=== PATIENT | female | born 1990 | race Hispanic/Latino ===

== ENCOUNTER → 2018-03-28 | Day surgery (SDC) | payer OTHER ==
[~2018-03-28] MED LIST: Bupivacaine/Epinephrine 0.25% 30 ML VIAL ONE; Fentanyl 100 MCG/2 ML VIAL ONE; HYDROcodone/Acetaminophen 5/325 mg Tablet ONE; Lidocaine 1% PF 5 ML VIAL ONE; Ondansetron HCl/PF 4 MG/2 ML Vial ONE; PROPOFOL 200 MG/20 ML VIAL ONE; Succinylcholine Chloride 20 MG/ML 10 ml SYRINGE FS ONE; ePHEDrine/0.9% NaCl/PF SYRINGE 50 mg/10 ml ONE
--- NOTE | 2018-03-28 20:33 | OP ---
DATE OF PROCEDURE: 03/28/2018 PREOPERATIVE DIAGNOSIS: Acute appendicitis. POSTOPERATIVE DIAGNOSIS: Acute appendicitis. PROCEDURE: Laparoscopic appendectomy. SURGEON: Durga Sousa M.D ANESTHESIA: General. ESTIMATED BLOOD LOSS: __minimal___ COMPLICATIONS: None. SPECIMEN: Appendix. FINDINGS: Appendicitis. TECHNIQUE: The patient was taken to the operating room and placed supine on the table. After general anesthetic was obtained, a Farias was placed. The abdomen was prepped and draped in a sterile fashion. Curved incision was made above the umbilicus. Cautery was used to dissect down to and score the fascia. Abdominal cavity was entered bluntly using a Mona clamp. Holding stitch of PDS was placed on each side of the fascia. Carlos Alberto trocar was placed after pneumoperitoneum was obtained. A suprapubic 5 mm port and left lower quadrant 5 -mm port placed under direct visualization. The cecum was rolled over to reveal acute appendicitis. A small window was made at the base of the appendix and mesoappendix. Laparoscopic stapler fired across the base of the appendix. A vascular reload fired across the mesoappendix. Appendix placed in the endocatch bag and brought out through the Carlos Alberto. There was no bleeding on the staple line. The abdomen and pelvis irrigated using sterile solution. No damage to any intraabdominal structures. All port sites infiltrated using local anesthetic. All ports are removed under camera visualization without bleeding. Pneumoperitoneum was let down. PDS was used to close the fascial defect below the umbilicus. All incisions were irrigated and closed using 4-0 Monocryl and Dermabond. The patient en route to recovery in stable condition. All instrument counts, needle counts, lap counts were correct. MTDD
--- NOTE | 2018-03-29 00:54 | HP ---
CHIEF COMPLAINT: Lower abdominal pain. HISTORY OF PRESENT ILLNESS: This is a 27-year-old female with a history of pain in the right lower q uadrant, described as sharp, does not radiate, associated with nausea, no vomiting, associated with a norexia, but no diarrhea or constipation. She has never had this pain before. No history of chronic inflammatory bowel disease or Crohn's disease. CT scan at [facility] reveals appendicitis . PAST MEDICAL HISTORY: Negative. PAST SURGICAL HISTORY: Tubal. MEDICINES: None. ALLERGIES: No known drug allergies. SOCIAL HISTORY: No smoking, alcohol or other drugs. REVIEW OF SYSTEMS: Ten system review of systems is otherwise negative unless described above. PHYSICAL EXAMINATION: HEENT: Sclerae are anicteric. Oropharynx clear. NECK: No lymphadenopathy. LUNGS: Clear. HEART: Regular rate and rhythm. ABDOMEN: Soft, tender right lower quadrant, localized guarding, no rebound, no abdominal hernias. EXTREMITIES: No ischemia or edema to extremities. CT scan reveals acute appendicitis. ASSESSMENT: Acute appendicitis. PLAN: Laparoscopic appendectomy. Risks, benefits, alternatives discussed. She gives consent. We w ill do this today.
== END ==
LOC: SDC 17:13
PROVIDERS: ATTEND Surgery
PROC: 0DTJ4ZZ Resection of Appendix, Percutaneous Endoscopic Approach (ICD-10-PCS; principal; 2018-03-28)
DX: K35.80 Unspecified acute appendicitis (principal)
CPT/HCPCS: 88304; 96374; 96375; 96376; J2405; J3010

== ENCOUNTER 2020-04-15 08:10 | Outpatient (CLI) | payer OTHER ==
[2020-04-15 16:19] LABS: SARS-CoV-2 MS2 Positive; SARS-CoV-2 N Gene Negative; SARS-CoV-2 S Gene Negative; SARS-CoV-2 by NAA Not Detected (NotDetected); SARS-CoV-2 orf1ab Negative
== END 2020-04-15 08:11 | disposition home or self-care (01) ==
LOC: LABBT 08:10
PROVIDERS: ATTEND Obstetrics & Gynecology
DX: Z20.828 Contact with and (suspected) exposure to other viral communicable diseases (principal)
CPT/HCPCS: 87635; U0003

== ENCOUNTER 2020-04-18 12:00 | Inpatient (IN) | payer OTHER ==
[~2020-04-18 12:00] MED LIST changes: +Bicitra 30 ML UDCUP PO SCH; -Bupivacaine/Epinephrine 0.25% 30 ML VIAL ONE; +CEFAZOLIN 2 GM in Premix Bag 1 BAG IVPB SCH; -Fentanyl 100 MCG/2 ML VIAL ONE; -HYDROcodone/Acetaminophen 5/325 mg Tablet ONE; -Lidocaine 1% PF 5 ML VIAL ONE; -Ondansetron HCl/PF 4 MG/2 ML Vial ONE; +Ondansetron PF 4 MG/2 ML Vial IVP PRN; -PROPOFOL 200 MG/20 ML VIAL ONE; +Promethazine HCl 25 MG/ML VIAL IM PRN; -Succinylcholine Chloride 20 MG/ML 10 ml SYRINGE FS ONE; -ePHEDrine/0.9% NaCl/PF SYRINGE 50 mg/10 ml ONE; +hydrALAZINE 20 MG/ML VIAL SLOW IVP PRN
[2020-04-18 15:19] VITALS: BMI 40.8
[2020-04-18] MEDS: Lactated Ringer's 1,000 ML IV SCH (15:30)
[2020-04-18 16:04] LABS: Hemoglobin 12.4 g/dL (12.0-16.0); Mean Corpuscular HGB CONC 35.2 g/dL (32.0-36.0); Mean Corpuscular Hemoglobin 30.5 pg (27.0-31.0); Mean Corpuscular Volume 86.8 fL (78.0-98.0); Mean Platelet Volume 10.7 fL (7.4-10.4); Platelet Count 187 thou/uL (130-400); RBC Distribution Width 12.2 % (11.5-14.5); Red Blood Cell (RBC) Count 4.08 mill/uL (4.20-5.40); White Blood Cell (WBC) Count 12.3 thou/uL (4.8-10.8)
[2020-04-18 16:38] LABS: HBSAg Index 0.26 S/CO (0-0.99); Hep B Surf Ag Non-Reactive S/CO (NonReactive); Syphilis Antibody Nonreactive (Nonreactive); Syphilis Antibody Index 0.03 S/CO (<1.00 Non-Reactive)
[2020-04-18] MEDS ORDERED: Oxytocin 10 UNITS/ML VIAL ONE ×2 (17:18→19:29)
[2020-04-18] MEDS ORDERED: PHENYLEPHRINE-NS 100 MCG/ML 10 ML SYRINGE ONE (17:19)
[2020-04-18] MEDS ORDERED: Ondansetron PF 4 MG/2 ML Vial ONE (17:19)
[2020-04-18] MEDS ORDERED: Ketorolac Tromethamine 30 MG/ML VIAL ONE (17:19)
[2020-04-18] MEDS ORDERED: ePHEDrine 50 MG/ML VIAL ONE (17:19)
[2020-04-18] MEDS ORDERED: Morphine PF 10 MG/10 ML VIAL ONE (17:20)
[2020-04-18] MEDS ORDERED: Dexamethasone 4 mg/ml Vial ONE ×2 (18:53→19:05)
[2020-04-18] MEDS ORDERED: diphenhydrAMINE 50 MG/ML VIAL ONE (19:04)
[2020-04-18] MEDS ORDERED: Naloxone HCl 0.4 mg/ml Vial IVP PRN ×2 (19:38)
[2020-04-18] MEDS ORDERED: diphenhydrAMINE 50 MG/ML VIAL IVP PRN (19:38)
[2020-04-18] MEDS ORDERED: Promethazine HCl 25 MG SUPP PR PRN (19:38)
[2020-04-18] MEDS ORDERED: Promethazine HCl 25 MG/ML VIAL IM PRN ×2 (19:38→21:35)
[2020-04-18] MEDS ORDERED: Ondansetron HCl/PF 4 MG/2 ML Vial IVP PRN (19:38)
[2020-04-18] MEDS ORDERED: HYDROmorphone 2 MG/ML VIAL SLOW IVP PRN (19:38)
[2020-04-18] MEDS ORDERED: L&D-Morphine 4 MG/ML VIAL SLOW IVP PRN (19:38)
[2020-04-18] MEDS ORDERED: Meperidine HCl/PF 25 MG/ML VIAL SLOW IVP PRN (19:38)
[2020-04-18] MEDS ORDERED: Ondansetron PF 4 MG/2 ML Vial IVP PRN ×2 (19:38→21:35)
[2020-04-18] MEDS ORDERED: Naloxone HCl 0.4 mg/ml Vial IV PRN (19:38)
[2020-04-18] MEDS ORDERED: Communication Order-Pharmacy FS SCH (19:45)
[2020-04-18] MEDS ORDERED: Methylergonovine 0.2 MG/ML VIAL IM PRN (21:35)
[2020-04-18] MEDS ORDERED: Bisacodyl 10 MG SUPP PR PRN (21:35)
[2020-04-18] MEDS ORDERED: Simethicone Chewable 80 MG TAB PO PRN (21:35)
[2020-04-18] MEDS ORDERED: Misoprostol 200 MCG TAB PR PRN (21:35)
[2020-04-18] MEDS ORDERED: hydrALAZINE 20 MG/ML VIAL SLOW IVP PRN (21:35)
[2020-04-18] MEDS ORDERED: Zolpidem Tartrate 5 MG TAB PO PRN (21:35)
[2020-04-18] MEDS ORDERED: Lanolin Ointment 7 GM TUBE TOP PRN (21:35)
[2020-04-18] MEDS ORDERED: NS / Oxytocin 40 units/1000ml 1,000 ML IV SCH (21:35)
[2020-04-18] MEDS ORDERED: Morphine 2 MG/ML VIAL SLOW IVP PRN (23:27)
[2020-04-19 06:15] LABS: Hemoglobin 10.9 g/dL (12.0-16.0); Mean Corpuscular HGB CONC 34.3 g/dL (32.0-36.0); Mean Corpuscular Hemoglobin 30.4 pg (27.0-31.0); Mean Corpuscular Volume 88.7 fL (78.0-98.0); Mean Platelet Volume 10.2 fL (7.4-10.4); Platelet Count 159 thou/uL (130-400); RBC Distribution Width 11.9 % (11.5-14.5); Red Blood Cell (RBC) Count 3.57 mill/uL (4.20-5.40); White Blood Cell (WBC) Count 19.5 thou/uL (4.8-10.8)
[2020-04-19] MEDS ORDERED: HYDROcodone/Acetaminophen 5/325 mg Tablet PO PRN ×2 (07:45)
[2020-04-19] MEDS ORDERED: Varicella virus, LIVE 0.5 ML VIAL SC ONE (09:00)
[2020-04-19] MEDS ORDERED: Measles/Mumps/Rubella 10 MCG/0.5 ML VIAL SC ONE (09:00)
[2020-04-19] MEDS ORDERED: FLU VACC QS2020-21(6MOS UP)/PF 60 MCG/0.5 ML SYRINGE IM ONE (09:00)
[2020-04-19] MEDS ORDERED: Adacel (T-DAP) 0.5 ML SYRINGE IM ONE (09:00)
[2020-04-19] MEDS: Ibuprofen 800 MG TAB PO SCH ×3 (09:20→20:52)
[2020-04-19] MEDS: Prenatal Vitamin 1 TAB PO SCH (09:21)
[2020-04-19] MEDS: Docusate Calcium (SURFAK) 240 MG CAP PO SCH ×2 (09:21→20:52)
[2020-04-19] MEDS: Lactated Ringer's 1,000 ML IV SCH (11:46)
--- NOTE | 2020-04-19 17:42 | PDOC.PP ---
Post Progress Note Post Day #: 1 PO intake tolerated: yes Flatus: yes Ambulation: yes Vital Signs (12 hours) Temp Pulse Resp BP Pulse Ox 04/19/20 11:48 98.3 F 81 20 102/63 97 04/19/20 08:15 98.0 F 59 L 20 90/52 L 99 04/19/20 06:24 20 Weight Weight 238 lb - Physical Examination General: NAD Cardiovascular: no m/r/g, RRR Respiratory: clear to auscultation bilaterally, non-labored breathing Abdominal: + bowel sounds, lochia, no distention, appropriately TTP Extremities: negative homans (B) Skin: CS incision dry & intact, no rash Neurological: no gross focal deficits Psychiatric: A&Ox3, normal affect Result Diagrams: 04/19/20 05:40 Additional Labs: Post Labs Hep Bs Antigen Non-Reactive S/CO (NonReactive) 04/18/20 15:37 Blood Type B POSITIVE 04/18/20 17:17
--- NOTE | 2020-04-19 17:42 | PDOC.LDHP ---
Labor and Delivery H&P HPI: 29 y/o at 39 weeks for 2nd Repeat today. Patient declines TOLAC. Current gestational age (weeks): 39 Grav: 2 Para: 1 Current complications: none Abnormal US findings: No Current medications: pre-reinaldo vitamins Previous surgical history: low tranverse CS Allergies/Adverse Reactions: Allergies Allergy/AdvReac Type Severity Reaction Status Date / Time aspirin Allergy Intermediate Hives Verified 04/18/20 15:13 Social history: none - Physical Exam Vital signs reviewed and normal: yes General: NAD, resting Heart: RRR Lungs: CTAB Abdomen: NTTP Extremeties: no edema FHT: category 1 - Assessment L&D Assessment: scheduled repeat section - Plan Plan: admit to L&D, to OR for section
--- NOTE | 2020-04-20 00:05 | OP ---
DATE OF PROCEDURE: 04/18/2020 TIME OF SERVICE: At 1843 hours central daylight savings time. PREOPERATIVE DIAGNOSES: Intrauterine at 39 weeks and 0 days with a history of previous section, and the patient declines vaginal after . POSTOPERATIVE DIAGNOSES: Intrauterine at 39 weeks and 0 days with a history of previous section, and the patient declines vaginal after . PROCEDURE PERFORMED: Repeat low transverse section. FINDINGS: Viable female , weighing 2971 g or 6 pounds 9 ounces, Apgars of 8 and 9. QUANTITATIVE BLOOD LOSS: 310 mL. COMPLICATIONS: None. DETAILS OF THE PROCEDURE: After obtaining consent, the patient was taken back to the operating room where her regional anesthesia was found to be adequate. The patient was placed in the dorsal supine position with leftward tilt. The skin was tested for adequate anesthesia and a scalpel was then used to make a Pfannenstiel incision which was carried down to the underlying rectus fascia. The fascia was incised in the midline and the fascial incision extended in both lateral directions. 2 Eugene clamps were placed at the superior aspect of the fascia and the rectus muscles were dissected away. Similarly, 2 Eugene clamps were placed at the inferior aspect of the incision and rectus muscles dissected away. The rectus muscles were then in the midline and the peritoneum identified and entered bluntly with the hemostat. The peritoneal incision was then extended superiorly and inferiorly. A bladder blade was then placed within the peritoneal cavity and a bladder flap was made with Metzenbaum scissors and pickups with teeth. The bladder blade was replaced. A clean scalpel was used to make a uterine incision. The baby was then delivered with gentle fundal pressure without difficulty. The baby's mouth and nose were bulb suctioned and the cord clamped and cut. The baby was then handed to waiting attendants. Cord blood and cord gases were obtained. The placenta was manually extracted. The uterus exteriorized, cleared of all clots and debris, and repaired with #1 chromic suture in a running, locked fashion. Hemostasis at the uterine wall was excellent. The bladder flap was repaired with 2-0 Monocryl in a running fashion. The tubes and ovaries were inspected and appeared normal. The posterior cul-de-sac was blotted dry and the uterus was replaced within the abdomen. Again, the uterus was firm, and hemostasis was excellent at the uterine repair. Peritoneum was closed with 2-0 chromic suture in a running fashion. Fascia was reapproximated with 0 Vicryl, using 2 running sutures tied in the midline. The subcutaneous tissue was irrigated. Hemostasis was assured and the skin closed with 3-0 Monocryl and Dermabond adhesive. The patient was then transferred to the ambulatory bed and taken to recovery in stable condition. Job ID: [id number]
[2020-04-20] MEDS: Ibuprofen 800 MG TAB PO SCH (04:31)
[2020-04-20 08:01] VITALS: BP 116/74; TEMP 98
[2020-04-20] MEDS: Prenatal Vitamin 1 TAB PO SCH (08:49)
[2020-04-20] MEDS: Docusate Calcium (SURFAK) 240 MG CAP PO SCH (08:49)
== END 2020-04-20 11:30 | disposition home or self-care (01) | DRG 788 ==
LOC: L&D 14:16 → 3SW 22:52
PROVIDERS: ADMIT Obstetrics & Gynecology; ATTEND Obstetrics & Gynecology
PROC: 10D00Z1 Extraction of Products of Conception, Low, Open Approach (ICD-10-PCS; principal; 2020-04-18)
DX: O34.219 Maternal care for unspecified type scar from previous cesarean delivery (principal); Z3A.39 39 weeks gestation of pregnancy; Z37.0 Single live birth; Z88.6 Allergy status to analgesic agent; Z88.8 Allergy status to other drugs, medicaments and biological substances; Z20.828 Contact with and (suspected) exposure to other viral communicable diseases
CPT/HCPCS: 36415; 51702; 85027; 86780; 86850; 86900; 86901; 87340; 87635; J0690; J1100; J1200; J1885; J2270; J2405; J3490; U0003